=== PATIENT | female | born 1990 | race Caucasian/White ===

== ENCOUNTER 2021-02-02 09:01 | Emergency (ER) | payer OTHER ==
[2021-02-02 09:13] VITALS: BP 135/73
--- NOTE | 2021-02-02 09:58 | ED Physician Documentation ---
PD HPI NVD - Stated complaint Stated Complaint: N/V - Chief complaint Chief Complaint: Abd Pain - History obtained from History obtained from: Patient - History of Present Illness Timing - onset: How many weeks ago (1) Timing - duration: Weeks (1) Timing - details: Abrupt onset (onset 1 week ago along with her and daughter of nausea and vomiting. Pt also with diarrhea for 1 1/2 days. persisted diarrhea for 4-5 days. Both have continued with nausea and intermittent vomiting now the past several days. Daughter is recovered after just the 1-2 days.), Still present Associated symptoms: Fever (initial day), Abdominal pain (some pain upper abd that she feels is from vomiting.), Loss of appetite (mild). No: Near syncope / syncope, Weight loss Contributing factors: Sick contact (whole family is sick onset together. No noted unusual foods, but presume common source.). No: Bad food, Recent antibiotics Improved by: No: Vomiting, BM Worsened by: Eating Similar symptoms before: Has not had sx before Recently seen: Not recently seen Review of Systems Constitutional: reports: Fever (1 week ago) Nose: denies: Rhinorrhea / runny nose, Congestion Throat: denies: Sore throat Respiratory: denies: Cough GI: reports: Abdominal Pain (upper abd with and after vomiting), Nausea, Vomiting (a lot the first 2 days then intermittent the past several days, with persistent nausea.), Diarrhea (the first 2 days, frequent). denies: Constipation, Hematemesis, Bloody / black stool : denies: Dysuria Skin: denies: Rash, Lesions Neurologic: reports: Generalized weakness. denies: Near syncope, Altered mental status, Headache PD PAST MEDICAL HISTORY - Past Medical History Cardiovascular: None Respiratory: None Endocrine/Autoimmune: None GI: None - Present Medications Home Medications: Ambulatory Orders Medication Instructions Recorded Confirmed Famotidine [Pepcid] 20 mg PO DAILY #20 tablet 02/02/21 Ondansetron [Ondansetron Odt] 8 mg PO Q6H PRN #20 02/02/21 - Allergies Allergies/Adverse Reactions: Allergies Allergy/AdvReac Type Severity Reaction Status Date / Time No Known Drug Allergies Allergy Verified 02/02/21 09:13 PD ED PE NORMAL - Vitals Vital signs reviewed: Yes - General General: Alert and oriented X 3, No acute distress, Well developed/nourished - HEENT HEENT: Moist mucous membranes, Pharynx benign - Neck Neck: Supple, no meningeal sign, No adenopathy - Cardiac Cardiac: RRR, No murmur - Respiratory Respiratory: Clear bilaterally - Abdomen Abdomen: Normal bowel sounds, Soft, Non distended, No organomegaly, Other (some tender epigastric area and mild RUQ. No guarding nor percussion tender. ) - Back Back: No CVA TTP - Derm Derm: Normal color, Warm and dry Results - Vitals Vitals: Oxygen O2 Source Room air - Labs Labs: Laboratory Tests 02/02/21 02/02/21 02/02/21 10:40 10:40 11:26 WBC 7.0 RBC 4.66 Hgb 13.9 Hct 41.9 MCV 89.9 MCH 29.8 MCHC 33.2 RDW 12.1 Plt Count 239 MPV 8.7 Neut # (Auto) 4.6 Lymph # (Auto) 1.8 [place] # (Auto) 0.4 Eos # (Auto) 0.2 Baso # (Auto) 0.0 Absolute Nucleated RBC 0.00 Nucleated RBC % 0.0 Sodium 138 Potassium 3.7 Chloride 102 Carbon Dioxide 27 Anion Gap 9.0 BUN 15 Creatinine 0.8 Estimated GFR (MDRD) 85 L Glucose 91 Calcium 9.2 Total Bilirubin 1.0 AST 17 ALT 26 Alkaline Phosphatase 51 Total Protein 7.6 Albumin 4.3 Globulin 3.3 Albumin/Globulin Ratio 1.3 Lipase 20 L Coronavirus (PCR) NEGATIVE PD MEDICAL DECISION MAKING - ED course Complexity details: reviewed results, re-evaluated patient (better with meds. ), considered differential (3 family members sick together, presume common source. Pt with some exposure to others with URI symptoms but not GE. no obvious bad food source. Diarrhea has resolved so not as useful or needed for stool studies. Presume viral GE and now persistent gastritis symptoms. ), d/w patient Departure - Departure Disposition: 01 Home, Self Care Clinical Impression: Gastroenteritis Acute gastritis Qualifiers: Gastritis type: other gastritis Gastritis bleeding: without bleeding Qualified Code(s): K29.00 - Acute gastritis without bleeding Nausea and vomiting Qualifiers: Vomiting type: unspecified Vomiting Intractability: non-intractable Qualified Code(s): R11.2 - Nausea with vomiting, unspecified Condition: Stable Record reviewed to determine appropriate education?: Yes Instructions: ED Nausea Vomiting Follow-Up: AMANDA TRUJILLO ARNP [Primary Care Provider] - Prescriptions: Ondansetron [Ondansetron Odt] 8 mg PO Q6H PRN #20 PRN Reason: Nausea / Vomiting Famotidine [Pepcid] 20 mg PO DAILY #20 tablet Comments: Sounds likely there had been a initial viral illness or consider possible food poisoning. The persistent symptoms now may be an irritated stomach (gastritis). I would have you try ondansetron every 6 hours if needed for nausea. Also famotidine acid reducing twice daily for the next week or 2. Recheck if not improved well over the next 2-3 days. Discharge Date/Time: 02/02/21 12:43
[2021-02-02] MEDS ORDERED: MAG HYDROX/AL HYDROX/SIMETH 30 ML UDC PO STA (10:24)
[2021-02-02] MEDS ORDERED: ONDANSETRON 4 MG/2 ML VIAL IM STA (10:24)
[2021-02-02] MEDS ORDERED: FAMOTIDINE 20 MG TABLET PO STA (10:24)
[2021-02-02 10:47] LABS: BASOPHILS % (AUTO) 0.3 %; EOSINOPHILS # (AUTO) 0.2 10^3/uL (0.0-0.7); EOSINOPHILS % (AUTO) 2.1 %; HCT - HEMATOCRIT 41.9 % (37.0-47.0); HGB - HEMOGLOBIN 13.9 g/dL (12.0-16.0); LYMPHOCYTES # (AUTO) 1.8 10^3/uL (1.5-3.5); LYMPHOCYTES % (AUTO) 25.6 %; MEAN CORPUSCULAR HEMOGLOBIN 29.8 pg (27.0-31.0); MEAN CORPUSCULAR HGB CONC 33.2 g/dL (32.0-36.0); MEAN CORPUSCULAR VOLUME 89.9 fL (81.0-99.0); MEAN PLATELET VOLUME 8.7 fL (7.9-10.8); MONOCYTES # (AUTO) 0.4 10^3/uL (0.0-1.0); MONOCYTES % (AUTO) 5.6 %; NEUTROPHILS # (AUTO) 4.6 10^3/uL (1.5-6.6); NEUTROPHILS % (AUTO) 66.3 %; PLT - PLATELET COUNT 239 10^3/uL (130-450); RED BLOOD COUNT 4.66 10^6/uL (4.20-5.40); RED CELL DISTRIBUTION WIDTH 12.1 % (12.0-15.0)
[2021-02-02 11:00] LABS: ALBUMIN 4.3 g/dL (3.2-5.5); ALBUMIN/GLOBULIN RATIO 1.3 (1.0-2.2); CALCIUM 9.2 mg/dL (8.5-10.3); CREATININE 0.8 mg/dL (0.4-1.0); POTASSIUM 3.7 mmol/L (3.5-5.0); TOTAL PROTEIN 7.6 g/dL (6.7-8.2)
== END 2021-02-02 12:43 | disposition home or self-care (01) ==
LOC: ED 09:01
DX: K52.9 Noninfective gastroenteritis and colitis, unspecified (principal); Z20.822 Contact with and (suspected) exposure to COVID-19
CPT/HCPCS: 36415; 80053; 83690; 85025; 87635; 96372; 99283; 99284; A9270

== ENCOUNTER 2021-02-17 08:00 | Outpatient (CLI) | payer OTHER ==
--- NOTE | 2021-02-17 08:40 | SLEEP CARE CONSULTATION ---
Information from patient questionnaire entered by Liza Vazquez. I have reviewed and concur with the information entered by Liza Vazquez. This document represents the service I personally performed and the decisions made by me, Kaylee Luz ARNP. History of Present Illness Service Date and Time: 02/17/2021 0800 Reason for Visit: New patient Chief Complaint: reports: Insomnia, Unrefreshed sleep, Snoring, Excessive daytime sleepiness, Observed pauses in breathing (by ) Date of Onset: unknown Usual bedtime: 9-11 pm Time it takes to fall asleep: couple minutes Snores at night: Yes Observed to quit breathing while asleep: Yes Sleeps alone due to snoring: No Number of times waking at night: unknown Reasons for waking at night: reports: Choking, Snoring, Gasping for air, Bathroom, Other (just waking up) Toss, Turn, or Twitch while sleeping: Yes Recalls having dreams: Yes Usually gets out of bed at: 6-8 am Feels refreshed in the morning: No Morning headache: No Sleepy or fatigued during the day: Yes Ever fallen asleep while driving: Yes (drowsy driving, no accidents) Takes day naps: Yes (1-2 times a week) Dreams during day naps: No Prior sleep studies: No Additional HPI information: I had the pleasure of seeing SUZANNE LEVI today regarding the possibility of her having a sleep disorder. Her current complaints are insomnia, unrefreshed sleep and observed pauses in breathing. She has more issues sleeping since having her daughter. She states she snores and recently her saw her stop breathing while sleeping. She does not wake up feeling rested. Both of her parents have sleep apnea, father is treated. 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 Patient is and lives in [place]. Have you smoked in the past 12 months: No Alcohol use: Yes Alcohol amount and frequency: 1 can, rare Caffeine use: Yes Caffeine amount and frequency: 36 ounces coffee daily Family History Family history of sleep disordered breathing: Yes (father and mother) Family Hx Sleep Apnea: Mother: Sleep apnea - Untreated, Father: Sleep apnea - Treated Allergies and Home Medications Drug allergies reviewed: Yes (penicillin) Home medication list reviewed: Yes Allergy and home medication list: Fluoxetine Bupropion Hydroxyzine Viibyrd Review of Systems Weight gain over past 5 years: 60 Cardiovascular: denies: high blood pressure Gastrointestinal: denies: heartburn Urinary: reports: frequency Neurological: denies: headaches Psychiatric: reports: anxiety, depression, mood disorder Ear/Nose/Throat: reports: wisdom teeth removed. denies: tonsillectomy Endocrine: reports: sluggishness, too hot or cold Musculoskeletal: reports: joint pain, back pain Physical Exam Blood Pressure: 108/71 Cuff size: wrist Heart Rate: 64 O2 Saturation: 94 Height: 5 ft 3 in Weight: 240 lb Body Mass Index: 42.5 BMI Classification: Morbidly Obese Nostrils: patent to airflow Mouth and throat: narrow oropharynx Soft palate: normal Hard palate: normal Uvula: long Uvula visualization: 100% Mallampati Class I Tongue: enlarged in size with teeth armendariz on lateral edges Tonsils: small Chin and jaw: normal size and position Neck: normal w/o lymphadenopathy or thyromegaly Heart: regular rate and rhythm Lungs: clear bilaterally Impression and Plan 1. Suspected Obstructive Sleep Apnea-Hypopnea Syndrome, as suggested by a history of loud and irregular snoring, observed cessation of breath while asleep, gasping or choking in sleep, unrefreshed sleep, and excessive daytime sleepiness. Narrow oropharynx and obesity are common predisposing factors for obstructive sleep apnea-hypopnea syndrome. I recommend proceeding to polysomnography to confirm the diagnosis and to assess severity. If the patient has significant sleep disordered breathing, a manual CPAP titration study will also be performed to find the optimal treatment pressure. I informed the patient of what the sleep studies involve and after some discussion, obtained agreement to proceed. The pathophysiology of obstructive sleep apnea-hypopnea syndrome was discussed with the patient and health risks of cardiovascular and cerebrovascular disease if not treated. Risks of drowsy driving discussed in detail and patient advised to avoid long distance driving and to pullman car clerk at the first sign of drowsiness. Patient agreed to plan. * Schedule polysomnography +- manual CPAP titration study and return in 1-2 weeks after the study to discuss result and initiate therapy. * Avoid long distance driving or driving when feeling sleepy. * Avoid alcohol, sedative and muscle relaxant around bedtime. * Attempt to lose weight. * Review instructions provided by trained office staff on how to prepare for the sleep study. * Return for follow-up after sleep study completed. Counseling Topics: Weight loss health impact Visit Type: In Office Time Spent with Patient (minutes): 30 Provider Statement: I spent 100% of the Face to Face Visit with the patient with greater than 50% spent counseling the patient and coordination of care.
[2021-02-17 08:41] VITALS: BP 108/71
== END 2021-02-17 08:01 | disposition home or self-care (01) ==
LOC: SC 08:00
PROVIDERS: ATTEND Nurse Practitioner Family
DX: G47.10 Hypersomnia, unspecified (principal); R06.83 Snoring; R06.81 Apnea, not elsewhere classified; G47.8 Other sleep disorders; E66.01 Morbid (severe) obesity due to excess calories; Z68.41 Body mass index [BMI] 40.0-44.9, adult
CPT/HCPCS: 99203; 99212

== ENCOUNTER 2021-02-22 12:55 | Outpatient (CLI) | payer OTHER ==
--- OUTSIDE RECORDS SUMMARY | 2021-03-01 22:41 | EXTERNAL MEDICAL SUMMARY RPT | Continuity of Care Document ---
:1990 Demographics Phone Unavailable Preferred Language Samoan Marital Status Unknown Methodist Affiliation Unknown Race Unknown Ethnic Group Unknown Author Organization [place] Address [address] [phone] Phone Care Team Providers Name Role Phone *Temp Unavailable Unavailable Procedures date description facility 20210118 [facility] Vital Signs date measurement value source 20210118 BMI 44.8 kg/m2 20210118 BP_diastolic 70 mm[Hg] 20210118 BP_systolic 121 mm[Hg] 20210118 heart_rate 54 /min 20210118 height_metric 160.02 cm 20210118 height_standard 63 in 20210118 respiration_rate 24 /min 20210118 temperature_metric 36.83 C 20210118 temperature_standard 98.3 F 20210118 weight_metric 114.75 kg [id number] weight_standard 252.98 lb Social History date description facility [id number]
== END 2021-02-22 12:56 | disposition home or self-care (01) ==
LOC: SC 12:55
PROVIDERS: ATTEND Nurse Practitioner Family
DX: G47.10 Hypersomnia, unspecified (principal); G47.8 Other sleep disorders; R06.81 Apnea, not elsewhere classified; R09.02 Hypoxemia; F32.9 Major depressive disorder, single episode, unspecified; R06.83 Snoring
CPT/HCPCS: 95806

== ENCOUNTER 2021-02-28 14:08 | Outpatient (CLI) | payer OTHER | END 2021-02-28 14:09 | disposition home or self-care (01) | LOC: SC 14:08 | PROVIDERS: ATTEND Nurse Practitioner Family | DX: G47.10 Hypersomnia, unspecified (principal); R06.81 Apnea, not elsewhere classified; R06.83 Snoring; G47.8 Other sleep disorders; E66.01 Morbid (severe) obesity due to excess calories; Z68.41 Body mass index [BMI] 40.0-44.9, adult | CPT/HCPCS: 95806 ==

== ENCOUNTER 2021-03-09 08:00 | Outpatient (CLI) | payer OTHER ==
[2021-03-09 16:44] LABS: BILIRUBIN,URINE NEGATIVE (NEGATIVE); GLUCOSE, URINE (UA) NEGATIVE (NEGATIVE); KETONES,URINE (UA) NEGATIVE (NEGATIVE); LEUKOCYTE ESTERASE, URINE NEGATIVE (NEGATIVE); NITRITE,URINE NEGATIVE (NEGATIVE); OCCULT BLOOD,URINE NEGATIVE (NEGATIVE); PROTEIN,URINE NEGATIVE (NEGATIVE); UROBILINOGEN,URINE 0.2 (NORMAL) E.U./dL (NORMAL)
[2021-03-09 16:46] LABS: CLARITY,URINE CLEAR (CLEAR)
[2021-03-09 17:00] LABS: RBC,URINE None Seen /HPF (0-5); SQUAMOUS EPITHELIAL CELL,UR RARE Squamous (<= Few); WBC,URINE 0-3 /HPF (0-5)
[2021-03-09 17:01] LABS: BACTERIA,URINE Rare /HPF (None Seen)
== END 2021-03-09 23:59 | disposition home or self-care (01) ==
LOC: LAB.R 08:00
PROVIDERS: ATTEND Obstetrics & Gynecology
DX: R32 Unspecified urinary incontinence (principal)
CPT/HCPCS: 81001; 87086

== ENCOUNTER 2021-03-10 15:53 | Outpatient (CLI) | payer OTHER ==
--- NOTE | 2021-03-10 16:20 | SLEEP CARE CONSULTATION ---
Information from patient questionnaire entered by Sharmila Fletcher. I have reviewed and concur with the information entered by Sharmila Fletcher. This document represents the service I personally performed and the decisions made by , Kaylee Luz ARNP. History of Present Illness Service Date and Time: 03/10/2021 1553 Initial [place] Sleepiness Scale score: 6 (in 2020) Current [place] Sleepiness Scale score: 16 Additional HPI information: SUZANNE LEVI returns for follow up and results of the recently performed home sleep study. The patient was informed of the following findings: no significant sleep disordered breathing with an average AHI of 2.1 and caron oxygen saturation of 89%. This was a fair study due to partial loss of pulse oximetry signal. I explained the pathophysiology behind obstructive sleep apnea. Patient does not have sleep apnea and was advised how weight gain could increase the risk of developing sleep apnea in the future. I strongly encouraged the patient to lose weight. Patient has moderate snoring. Snoring can be reduced by weight loss. Weight loss is best achieved with diet consult. Patient instructed to contact PCP for referral. Snoring can also be treated with an oral appliance from a dentist. Adv ised to check insurance coverage. In addition, an ENT evaluation can be do to see if other treatment is indicated. Patient counseled not drink alcohol less than 4 hours before bedtime as it can increase snoring and apnea. Patient was cautioned about risks of drowsy driving until sleepiness symptoms resolve. Sleep Study - Results Type of Sleep Study: Home sleep study Prior sleep studies: No Polysomnography/Home Sleep Study results: Physician Impression: The quality of the study is fair due to partial loss of pulse oximetry signal. The length of the study is adequate (> 240 minutes). Please also see the tabulated and graphic data. 1. No significant sleep disordered breathing, with an AHI of 2.1/hr and caron SaO2 of 89%. During the study, the patient had 3 apneas (3 obstructive, 0 central, 0 mixed) and 7 hypopneas. The longest episode lasted 82.0 seconds. The few respiratory events occurred almost exclusively during supine sleep (supine AHI was 3.2 and non-supine, 0.90). 2. Hypoxemia (ICD-10 R09.02), minimal, with the lowest oxygen saturation of 89 % and 3.1 minutes with SaO2 under 90%. Baseline oxygen saturation was normal (Average oxygen saturation was 94%). Allergies and Home Medications Home medication list reviewed: Yes (Quetiapine for sleep) Review of Systems Review of systems same as previous: Yes (no changes) Physical Exam Heart Rate: 65 O2 Saturation: 96 Height: 5 ft 3 in Weight: 238 lb Weight change since last visit: 2 lb loss Body Mass Index: 42.1 BMI Classification: Morbidly Obese Impression and Plan Snoring but no significant sleep disordered breathing. Patient advised that often weight loss will reduce snoring as well as apnea risk. An oral appliance can also be used for snoring. This would require a dental consultation. Patient cautioned not to use other online appliances as can cause bite issues. A list of accredited dentists in area and one local dentist who makes oral appliances given. Patient is advised to check if insurance will cover. An ENT consult can also be helpful to determine if any other treatment is an option. * Attempt to lose weight * Avoid alcohol consumption near bedtime * The patient is cautioned about driving until sleepiness is completely resolved. * Return in as needed for follow up. Counseling Topics: Weight loss health impact, Activity level Visit Type: In Office Time Spent with Patient (minutes): 12 Provider Statement: I spent 100% of the Face to Face Visit with the patient with greater than 50% spent counseling the patient and coordination of care.
== END 2021-03-10 15:54 | disposition home or self-care (01) ==
LOC: SC 15:53
PROVIDERS: ATTEND Nurse Practitioner Family
DX: G47.10 Hypersomnia, unspecified (principal); R06.81 Apnea, not elsewhere classified; G47.8 Other sleep disorders; E66.01 Morbid (severe) obesity due to excess calories; Z68.41 Body mass index [BMI] 40.0-44.9, adult
CPT/HCPCS: 99212

== ENCOUNTER 2021-03-13 16:18 | Emergency (ER) | payer OTHER ==
--- OUTSIDE RECORDS SUMMARY | 2021-03-13 16:22 | EXTERNAL MEDICAL SUMMARY RPT | Continuity of Care Document ---
:1990 Demographics Phone Unavailable Preferred Language Tongan Marital Status Unknown Scientologist Affiliation Unknown Race Unknown Ethnic Group Unknown Author Organization [place] Address [address] [phone] Phone Care Team Providers Name Role Phone *Temp Unavailable Unavailable Procedures date description facility 20210118 [facility] Vital Signs date measurement value source 20210118 BMI 44.8 kg/m2 20210118 BP_diastolic 70 mm[Hg] 20210118 BP_systolic 121 mm[Hg] [id number] heart_rate 54 /min 20210118 height_metric 160.02 cm 20210118 height_standard 63 in [id number] respiration_rate 24 /min 20210118 temperature_metric 36.83 C 20210118 temperature_standard 98.3 F [id number] weight_metric 114.75 kg [id number] weight_standard 252.98 lb Social History date description facility [id number]
[2021-03-13 16:35] VITALS: BP 127/66
--- NOTE | 2021-03-13 16:35 | ED Physician Documentation ---
PD HPI LOWER EXT INJURY - Stated complaint Stated Complaint: right foot px - History obtained from History obtained from: Patient (Yesterday heavy [place] of [place]n [place] foot [place] the [place] and she has persistent pain to the left distal foot and difficulty walking because of it. No possibility . No other injuries.) Review of Systems Constitutional: reports: Reviewed and negative Cardiac: reports: Reviewed and negative Respiratory: reports: Reviewed and negative PD PAST MEDICAL HISTORY - Past Medical History Cardiovascular: None Respiratory: None Endocrine/Autoimmune: None GI: None - Present Medications Home Medications: Ambulatory Orders Medication Instructions Recorded Confirmed FLUoxetine [PROzac] 10 mg PO DAILY 03/13/21 03/13/21 Vilazodone HCl [Viibryd] 10 mg PO 03/13/21 busPIRone [Buspar] 5 mg PO BID 03/13/21 03/13/21 hydrOXYzine HCL [Hydroxyzine HCl] 10 mg PO 03/13/21 03/13/21 - Allergies Allergies/Adverse Reactions: Allergies Allergy/AdvReac Type Severity Reaction Status Date / Time No Known Drug Allergies Allergy Verified 02/02/21 09:13 - Social History Does the pt smoke?: No Smoking Status: Never smoker PD ED PE NORMAL - Vitals Vital signs reviewed: Yes - General General: Alert and oriented X 3, No acute distress - Extremities Extremities: Other (Tender to the distal second and third metatarsals of the left foot with some overlying bruising and pain with movement of those toes. No proximal foot tenderness or ankle tenderness.) - Neuro Neuro: Alert and oriented X 3, Normal speech Results - Vitals Vitals: Vital Signs - 24 hr 03/13/21 16:20 Temperature 36.5 C Heart Rate 95 Respiratory 16 Rate Blood Pressure 127/66 O2 Saturation 98 Oxygen O2 Source Room air - Rads (name of study) L foot XR\ Radiology: EMP read contemporaneously (no frx) Departure - Departure Disposition: 01 Home, Self Care Clinical Impression: Crush injury of left foot Qualifiers: Encounter type: initial encounter Qualified Code(s): S97.82XA - Crushing injury of left foot, initial encounter Condition: Good Record reviewed to determine appropriate education?: Yes Instructions: ED Crush Injury Toe No Fx Comments: Follow-up with your doctor in a week if not improved. Return anytime for new or worsening symptoms. Ibuprofen as needed for pain. Elevate and ice as well. Discharge Date/Time: 03/13/21 17:10
--- OUTSIDE RECORDS SUMMARY | 2021-03-13 16:36 | EXTERNAL MEDICAL SUMMARY RPT | Continuity of Care Document ---
:1990 Demographics Phone Unavailable Preferred Language Lithuanian Marital Status Unknown Catholic Affiliation Unknown Race Unknown Ethnic Group Unknown Author Organization [place] Address [address] [phone] Phone Care Team Providers Name Role Phone *Temp Unavailable Unavailable Procedures date description facility 20210118 [facility] Vital Signs date measurement value source 20210118 BMI 44.8 kg/m2 20210118 BP_diastolic 70 mm[Hg] 20210118 BP_systolic 121 mm[Hg] 20210118 heart_rate 54 /min 20210118 height_metric 160.02 cm 20210118 height_standard 63 in [id number] respiration_rate 24 /min 20210118 temperature_metric 36.83 C 20210118 temperature_standard 98.3 F [id number] weight_metric 114.75 kg [id number] weight_standard 252.98 lb Social History date description facility [id number]
--- NOTE | 2021-03-13 16:53 | XRAY Report ---
PROCEDURE: Foot 3 View LT INDICATIONS: foot inj TECHNIQUE: 3 views of the foot were acquired. COMPARISON: None FINDINGS: Bones: No fractures or dislocations. No suspicious bony lesions. Soft tissues: No tibiotalar joint effusion. Achilles tendon appears normal. IMPRESSION: No acute osseous abnormality. Reviewed by: Frantz Fermin DO on 03/13/2021 3:52 PM YULIA Approved by: Frantz Fermin DO on 03/13/2021 3:52 PM YULIA Station ID: [id number]
== END 2021-03-13 17:10 | disposition home or self-care (01) ==
LOC: ED 16:18
DX: S97.82XA Crushing injury of left foot, initial encounter (principal); S90.32XA Contusion of left foot, initial encounter; W20.8XXA Other cause of strike by thrown, projected or falling object, initial encounter; Y92.832 Beach as the place of occurrence of the external cause
CPT/HCPCS: 99282; 99283

== ENCOUNTER 2021-03-21 10:00 | Outpatient (CLI) | payer OTHER ==
--- NOTE | 2021-03-21 11:16 | XRAY Report ---
PROCEDURE: Foot 3 View LT INDICATIONS: LT FOOT PAIN/ PT STATES PAIN ALONG THE LATERAL ASPECT OF THE 3 RD TOE TECHNIQUE: 3 views of the foot were acquired. COMPARISON: None FINDINGS: Bones: No fractures or dislocations. No suspicious bony lesions. Soft tissues: No tibiotalar joint effusion. Achilles tendon appears normal. IMPRESSION: Source of pain reportedly along the lateral aspect of the third toe is not seen. Reviewed by: Abram Noel MD on 03/21/2021 11:15 AM PDT Approved by: Abram Noel MD on 03/21/2021 11:15 AM PDT Station ID: [id number]
== END 2021-03-21 10:01 | disposition home or self-care (01) ==
LOC: DI 10:00
PROVIDERS: ATTEND Nurse Practitioner Family
DX: M79.672 Pain in left foot (principal)

== ENCOUNTER 2021-04-07 08:11 | Emergency (ER) | payer OTHER ==
--- OUTSIDE RECORDS SUMMARY | 2021-04-07 08:16 | EXTERNAL MEDICAL SUMMARY RPT | Continuity of Care Document ---
:1990 Demographics Phone Unavailable Preferred Language Vietnamese Marital Status Unknown Advent Affiliation Unknown Race Unknown Ethnic Group Unknown Author Organization [place] Address [address] [phone] Phone Care Team Providers Name Role Phone *Temp Unavailable Unavailable Procedures date description facility 20210118 [facility] Vital Signs date measurement value source 20210118 weight_standard 252.98 lb 20210118 weight_metric 114.75 kg 20210118 temperature_standard 98.3 F 20210118 temperature_metric 36.83 C 20210118 respiration_rate 24 /min 20210118 height_standard 63 in 20210118 height_metric 160.02 cm [id number] heart_rate 54 /min 20210118 BP_systolic 121 mm[Hg] 20210118 BP_diastolic 70 mm[Hg] 20210118 BMI 44.8 kg/m2
[2021-04-07] MEDS ORDERED: IPRATROPIUM/ALBUTEROL 3 ML NEB INH STA (08:22)
--- OUTSIDE RECORDS SUMMARY | 2021-04-07 08:29 | EXTERNAL MEDICAL SUMMARY RPT | Continuity of Care Document ---
:1990 Demographics Phone Unavailable Preferred Language Thai Marital Status Unknown Yazdanism Affiliation Unknown Race Unknown Ethnic Group Unknown Author Organization [place] Address [address] [phone] Phone Care Team Providers Name Role Phone *Temp Unavailable Unavailable Procedures date description facility 20210118 [facility] Vital Signs date measurement value source 20210118 weight_standard 252.98 lb 20210118 weight_metric 114.75 kg 20210118 temperature_standard 98.3 F 20210118 temperature_metric 36.83 C 20210118 respiration_rate 24 /min 20210118 height_standard 63 in 20210118 height_metric 160.02 cm [id number] heart_rate 54 /min 20210118 BP_systolic 121 mm[Hg] 20210118 BP_diastolic 70 mm[Hg] 20210118 BMI 44.8 kg/m2
--- NOTE | 2021-04-07 09:50 | ED Physician Documentation ---
PD HPI DYSPNEA - Stated complaint Stated Complaint: SOA/LUNG PX - Chief complaint Chief Complaint: Resp - History obtained from History obtained from: Patient, Family - History of Present Illness Timing - onset: How many months ago (2) Timing - onset during: Rest Timing - duration: Months (2) Timing - details: Gradual onset, Still present, Waxing and waning Inciting event(s): URI Improved by: Inhaler/neb Worsened by: Exertion, Coughing Associated symptoms: Cough, Wheezing, Chest pain / discomfort Similar symptoms before: Diagnosis (COVID) Recently seen: Not recently seen - Additional information Additional information: Previously well 30-year-old female who has previously had to use an inhaler only infrequently has developed increasing shortness of breath over the past 2 months. She states that she was sick during the month of January and had 3 - Covid test. She has had her doses of Covid vaccine. She did not require inhale r during this period of time. This morning she awoke extremely short of breath and became panicked. She does not have new cough or production of phlegm. She does not have fever. Review of Systems Constitutional: denies: Fever Eyes: denies: Decreased vision Ears: denies: Ear pain Nose: reports: Congestion Throat: denies: Oral lesions / sores, Sore throat Cardiac: reports: Chest pain / pressure. denies: Palpitations, Pedal edema, Calf pain Respiratory: reports: Dyspnea, Cough, Wheezing GI: denies: Abdominal Pain, Nausea, Vomiting : denies: Dysuria, Frequency PD PAST MEDICAL HISTORY - Past Medical History Past Medical History: Yes Cardiovascular: None Respiratory: None Endocrine/Autoimmune: None GI: None Psych: Depression, Anxiety - Present Medications Home Medications: Ambulatory Orders Medication Instructions Recorded Confirmed FLUoxetine [PROzac] 10 mg PO DAILY 03/13/21 03/13/21 Vilazodone HCl [Viibryd] 10 mg PO 03/13/21 busPIRone [Buspar] 5 mg PO BID 03/13/21 03/13/21 Albuterol Sulf [Ventolin Hfa 1 - 2 puffs INH Q4HR PRN #1 inhaler 04/07/21 Inhaler] QUEtiapine [SEROquel] 0 mg DAILY 04/07/21 04/07/21 predniSONE [Deltasone] 10 mg PO ONCE #26 tablet 04/07/21 - Allergies Allergies/Adverse Reactions: Allergies Allergy/AdvReac Type Severity Reaction Status Date / Time No Known Drug Allergies Allergy Verified 04/07/21 08:15 - Social History Does the pt smoke?: No Smoking Status: Never smoker Does the pt drink ETOH?: No Does the pt have substance abuse?: Yes - Immunizations Immunizations are current?: No PD ED PE NORMAL - Vitals Vital signs reviewed: Yes (Hypertensive) - General General: Alert and oriented X 3, No acute distress, Well developed/nourished, Other - HEENT HEENT: Atraumatic, PERRL, EOMI, Ears normal, Moist mucous membranes - Neck Neck: Supple, no meningeal sign, No bony TTP - Cardiac Cardiac: RRR, No murmur - Respiratory Respiratory: No respiratory distress, Other (Diminished air sounds bilaterally following treatment.) - Abdomen Abdomen: Soft, Non tender - Back Back: No CVA TTP, No spinal TTP - Derm Derm: Normal color, Warm and dry, No rash - Extremities Extremities: No deformity, No edema - Neuro Neuro: Alert and oriented X 3, seam closer 2-12 intact, No motor deficit, No sensory deficit, Normal speech Eye Opening: Spontaneous Motor: Obeys Commands Verbal: Oriented GCS Score: 15 - Psych Psych: Normal mood, Normal affect Results - Vitals Vitals: Vital Signs - 24 hr 04/07/21 04/07/21 04/07/21 08:15 08:33 10:02 Temperature 36.6 C Heart Rate 63 79 66 Respiratory 20 18 17 Rate Blood Pressure 180/100 H 128/93 H O2 Saturation 96 96 04/07/21 04/07/21 10:42 10:43 Temperature 36.5 C Heart Rate 66 Respiratory 19 Rate Blood Pressure 112/81 H O2 Saturation 100 Oxygen O2 Source Room air - EKG (time done) 0819 Rhythm: NSR Ischemia: Normal ST segments Compare to prior EKG: Old EKG unavailable ( ) Computer interpretation: Agree with computer - Rads (name of study) chest 2 view Radiology: Prelim report reviewed (Impression: No acute process.), EMP read indepedently, See rad report PD MEDICAL DECISION MAKING - ED course Complexity details: considered differential, d/w patient, d/w family ED course: 30-year-old female with congestion and shortness of breath is wheezing on examination prior to my arriving into the exam room and the patient is administered a DuoNeb treatment with improvement. On my exam she has diminished breath sounds. I am not seeing evidence of bacterial infection. A chest x-ray is obtained. No evidence of infiltrate on the chest x-ray the patient does appear to have asthmatic bronchitis and she is treated with a course of pr ednisone and an albuterol inhaler. Departure - Departure Disposition: Home, Self Care Clinical Impression: Reactive airway disease with acute exacerbation Qualifiers: Asthma severity: mild Asthma persistence: intermittent Qualified Code(s): J45.21 - Mild intermittent asthma with (acute) exacerbation Condition: Stable Instructions: ED Bronchitis Asthmatic Follow-Up: [facility] [Provider Group] Prescriptions: Albuterol Sulf [Ventolin Hfa Inhaler] 1 - 2 puffs INH Q4HR PRN #1 inhaler PRN Reason: Shortness Of Air/Wheezing predniSONE [Deltasone] 10 mg PO ONCE #26 tablet Discharge Date/Time: 04/07/21 10:50
--- NOTE | 2021-04-07 10:09 | XRAY Report ---
PROCEDURE: Chest 2 View X-Ray INDICATIONS: soa TECHNIQUE: 2 view(s) of the chest. COMPARISON: None. FINDINGS: Surgical changes and devices: None. Lungs and pleura: No pleural effusions or pneumothorax. Lungs are clear. Mediastinum: Mediastinal contours are normal. Heart size is normal. Bones and chest wall: No suspicious bony abnormalities. Soft tissues appear unremarkable. IMPRESSION: No acute process. Reviewed by: Carlos Murray MD on 04/07/2021 10:08 AM PDT Approved by: Carlos Murray MD on 04/07/2021 10:08 AM PDT Station ID: [id number]
[2021-04-07 10:43] VITALS: BP 112/81
== END 2021-04-07 10:50 | disposition home or self-care (01) ==
LOC: ED 08:11
DX: J45.21 Mild intermittent asthma with (acute) exacerbation (principal)
CPT/HCPCS: 93005; 94640; 94664; 99283

== ENCOUNTER 2022-08-18 14:10 | Outpatient (CLI) | payer MEDICAID | END 2022-08-18 14:11 | disposition EMS.NT | LOC: EMS 14:10 | DX: M54.6 Pain in thoracic spine (principal); V49.49XA Driver injured in collision with other motor vehicles in traffic accident, initial encounter; Y92.413 State road as the place of occurrence of the external cause ==

== ENCOUNTER 2023-11-01 13:40 | Emergency (ER) | payer OTHER ==
[2023-11-01] MEDS ORDERED: BUPIVACAINE 0.5% PF 10 ML VIAL SUBQ STA (13:51)
[2023-11-01 13:52] VITALS: BP 140/90; O2SAT 99
--- NOTE | 2023-11-01 13:52 | ED Physician Documentation ---
PD HPI UPPER EXT INJURY - Stated complaint Stated Complaint: RT THUMB PX - Chief complaint Chief Complaint: Trauma Ext - History obtained from History obtained from: Patient (Right-handed woman caught her right thumb in the car door just prior to arrival with severe pain. No other injuries. No possibility of .) PD PAST MEDICAL HISTORY - Past Medical History Past Medical History: Yes Cardiovascular: None Respiratory: None Endocrine/Autoimmune: None GI: None Psych: Depression, Anxiety - Past Surgical History Past Surgical History: No - Present Medications Home Medications: Ambulatory Orders Medication Instructions Recorded Confirmed FLUoxetine [PROzac] 10 mg PO DAILY 03/13/21 03/13/21 Vilazodone HCl [Viibryd] 10 mg PO 03/13/21 busPIRone [Buspar] 5 mg PO BID 03/13/21 03/13/21 Albuterol Sulf [Ventolin Hfa 1 - 2 puffs INH Q4HR PRN #1 inhaler 04/07/21 Inhaler] QUEtiapine [SEROquel] 0 mg DAILY 04/07/21 04/07/21 predniSONE [Deltasone] 10 mg PO ONCE #26 tablet 04/07/21 - Allergies Allergies/Adverse Reactions: Allergies Allergy/AdvReac Type Severity Reaction Status Date / Time amoxicillin Allergy Emesis Verified 11/01/23 13:44 - Social History Does the pt smoke?: No Smoking Status: Never smoker Does the pt drink ETOH?: No Does the pt have substance abuse?: Yes - Immunizations Immunizations are current?: No PD ED PE NORMAL - Vitals Vital signs reviewed: Yes - General General: Alert and oriented X 3, No acute distress - Extremities Extremities: Other (About a 50% subungual hematoma and tender at the tuft/tip of the right thumb. No limited range of motion.) - Neuro Neuro: Alert and oriented X 3 Eye Opening: Spontaneous Motor: Obeys Commands Verbal: Oriented GCS Score: 15 Results - Vitals Vitals: Vital Signs - 24 hr 11/01/23 13:44 Temperature 36.8 C Heart Rate 70 Respiratory 16 Rate Blood Pressure 140/90 H O2 Saturation 99 Oxygen O2 Source Room air - Rads (name of study) X-ray of the right thumb demonstrating tuft fracture nondisplaced Relevant Findings:: Final report received, EMP independent interpretation of test Procedures - General procedure General procedure: A digital block was done with 0.5% Marcaine of the right thumb in standard fashion. Subsequently the subungual hematoma was drained using electrocautery. - Splint (location) - Minor R thumb Splint applied by: Physician Type of splint: Metal foam finger splint Departure - Departure Disposition: 01 Home, Self Care Clinical Impression: Fracture of thumb Qualifiers: Encounter type: initial encounter Fracture type: closed Phalanx: distal Fracture alignment: nondisplaced Laterality: right Qualified Code(s): S62.524A - Nondisplaced fracture of distal phalanx of right thumb, initial encounter for closed fracture Subungual hematoma of digit of hand Qualifiers: Encounter type: initial encounter Qualified Code(s): S60.10XA - Contusion of unspecified finger with damage to nail, initial encounter Condition: Good Record reviewed to determine appropriate education?: Yes Instructions: ED Fx Thumb Follow-Up: [facility] [Provider Group] Comments: You do have a hairline fracture of the tuft of the right thumb. Keep the splint on and dry, follow-up with one of our orthopedists in about a week for recheck. Tylenol and/or ibuprofen as needed for pain. Call the orthopedics office for an appointment. Forms: PCP List, Activity restrictions
--- NOTE | 2023-11-01 14:12 | XRAY Report ---
PROCEDURE: Finger(s) RT INDICATIONS: thumb inj TECHNIQUE: AP hand, 2 views of the thumb acquired. COMPARISON: None. FINDINGS: Bones: Nondisplaced distal tuft fracture of distal phalanx of thumb, but uncertain chronicity. No [place] spicious bony lesions. Soft tissues: No suspicious soft tissue calcifications or masses. IMPRESSION: Distal tuft fracture of the thumb, but uncertain chronicity. Recommend clinical correlation for prese nce or absence of point tenderness. No other fractures or dislocations noted. Reviewed by: Yahir Wood MD on 11/01/2023 2:11 PM PST Approved by: Yahir Wood MD on 11/01/2023 2:11 PM PST Station ID: [id number]
== END 2023-11-01 14:20 | disposition home or self-care (01) ==
LOC: ED 13:40
DX: S62.524A Nondisplaced fracture of distal phalanx of right thumb, initial encounter for closed fracture (principal); W23.0XXA Caught, crushed, jammed, or pinched between moving objects, initial encounter
CPT/HCPCS: 11740; 99283; 99284